=== PATIENT | female | born 1985 | race Caucasian/White ===

== ENCOUNTER 2018-04-07 21:52 | Inpatient (IN) | payer OTHER ==
[2018-04-07 22:20] VITALS: BMI 30.8
[2018-04-07] MEDS ORDERED: TERBUTALINE 1 MG/ML VIAL SQ PRN (22:25)
[2018-04-07] MEDS ORDERED: CARBOPROST TROMETHAMINE 250 MCG/ML 1 ML AMP IM PRN (22:25)
[2018-04-07] MEDS ORDERED: METHYLERGONOVINE 0.2 MG/ML 1 ML AMP IM PRN (22:25)
[2018-04-07] MEDS ORDERED: OXYTOCIN 10 UNIT/ML 1 ML VIAL IM PRN (22:25)
[2018-04-07] MEDS ORDERED: LIDOCAINE 0.5% (PF) 5 MG/ML (50 ML SDV) SQ PRN (22:25)
[2018-04-07] MEDS ORDERED: AMPICILLIN 2,000 MG in SODIUM CHLORIDE 0.9% 100 ML IVPB STA (22:25)
[2018-04-07] MEDS ORDERED: BUTORPHANOL 1 MG/ML 1 ML VIAL IV PRN (22:27)
[2018-04-07] MEDS ORDERED: OXYTOCIN 20 UNITS/1000 ML NS 1,000 ML IV SCH (22:30)
[2018-04-07] MEDS ORDERED: LACTATED RINGERS 1,000 ML IV SCH (22:30)
[2018-04-07] MEDS: LACTATED RINGERS 1,000 ML IV SCH (22:47)
[2018-04-07 23:39] LABS: Basophils % (A) 0 %; Eosinophils # (A) 0.3 k/uL (0-0.7); Eosinophils % (A) 1 %; HCT 36.5 % (34.0-46.0); HGB 11.6 gm/dL (11.4-16.0); Hypochromasia Slight; Lymphocytes # (A) 1.6 k/uL (1.0-4.8); Lymphocytes % (A) 9 %; MCH 30.4 pg (25.0-35.0); MCHC 31.6 g/dL (31.0-37.0); MCV 96.3 fL (80.0-100.0); Mean Platelet Volume 7.1; Monocytes # (A) 0.9 k/uL (0-1.0); Monocytes % (A) 5 %; Neutrophils # (A) 15.3 k/uL (1.3-7.7); Neutrophils % (A) 83 %; Platelet Count 349 k/uL (150-450); RBC 3.79 m/uL (3.80-5.40); RDW 14.3 % (11.5-15.5); WBC 18.3 k/uL (3.8-10.6)
--- NOTE | 2018-04-08 00:13 | P.HPOB ---
History of Present Illness H&P Date: 04/07/18 Chief Complaint: IUP at 39-6/7 weeks, active labor This is a pleasant 32-year-old 4 para 10-1 at 39-6/7 weeks that presents to labor and delivery with complaints of regular painful contractions. She denies loss of fluid or vaginal bleeding at this time. Patient notes good movement. Patient has known history of a 10 pound baby delivered in 2006 vaginally patient denies delivery complications. Patient has been receiving routine care with Dr. Pak On blood work a blood type of O+, rubella nonimmune, hepatitis B surface antigen negative, HIV negative, RPR nonreactive, GBS pos. Review of Systems Constitutional: Denies chills, Denies fatigue, Denies fever Ears, nose, mouth and throat: Denies headache Cardiovascular: Reports leg edema Respiratory: Denies cough, Denies dyspnea Gastrointestinal: Denies constipation, Denies diarrhea Genitourinary: Reports Past Medical History Past Medical History: No Reported History History of Any Multi-Drug Resistant Organisms: None Reported Past Surgical History: No Surgical Hx Reported Past Anesthesia/Blood Transfusion Reactions: No Reported Reaction Past Psychological History: Anxiety Smoking Status: Current every day smoker Past Alcohol Use History: Rare Past Drug Use History: Marijuana - Past Family History Mother Family Medical History: No Reported History Medications and Allergies Home Medications Medication Instructions Recorded Confirmed Type Pnv,Calcium 72/Iron/Folic Acid 1 tab PO ONCE 04/07/18 04/07/18 History [ Plus Tablet] Allergies Allergy/AdvReac Type Severity Reaction Status Date / Time No Known Allergies Allergy Verified 03/17/18 12:58 Exam Osteopathic Statement: *. No significant issues noted on an osteopathic structural exam other than those noted in the History and Physical/Consult. Vital Signs Temp Pulse Resp BP 04/07/18 22:15 98 F 86 16 125/61 Intake and Output 04/07/18 04/07/18 04/08/18 14:59 22:59 06:59 Other: Weight 78.925 kg On targeted physical exam in general patient was noted to be a well-nourished well-developed female, in no acute distress. Heart was noted to have regular rate and rhythm, lungs are clear to auscultation bilaterally, abdomen was noted to be Creve and appropriate for gestational age, on vaginal exam cervix to be 6, 90, -1 amniotomy was performed and clear fluid was obtained. heart tones were assessed and reassuring with moderate variability, patient was noted to be shyla every 2 minutes. Results Result Diagrams: 04/07/18 23:30 Abnormal Lab Results - Last 24 Hours (Table) 04/07/18 Range/Units 23:30 WBC 18.3 H (3.8-10.6) k/uL RBC 3.79 L (3.80-5.40) m/uL Neutrophils # 15.3 H (1.3-7.7) k/uL Assessment and Plan (1) Term Current Visit: Yes Status: Acute Code(s): Z34.80 - ENCOUNTER FOR SUPRVSN OF NORMAL , UNSP TRIMESTER SNOMED Code(s): 98157057 (2) Positive GBS test Current Visit: Yes Status: Acute Code(s): B95.1 - STREPTOCOCCUS, GROUP B, CAUSING DISEASES [facility] SNOMED Code(s): 1978543352759 (3) Tobacco abuse Current Visit: Yes Status: Acute Code(s): Z72.0 - TOBACCO USE SNOMED Code( s): 138093477 Plan: We'll admit to labor and delivery for expectant management, anticipate spontaneous vaginal delivery this evening. Patient is given IV ampicillin given her group beta strep positive culture.
[2018-04-08] MEDS ORDERED: LANOLIN CREAM 5 GM TUBE TOPICAL PRN (01:32)
[2018-04-08] MEDS ORDERED: ZOLPIDEM 5 MG TAB PO PRN (01:32)
[2018-04-08] MEDS ORDERED: BENZOCAINE/MENTHOL SPRAY 1 GM/SPRAY AEROSOL TOPICAL PRN (01:32)
[2018-04-08] MEDS ORDERED: ACETAMINOPHEN TAB 325 MG TAB PO PRN (01:32)
[2018-04-08] MEDS ORDERED: WITCH HAZEL 1 EACH MED..PAD TOPICAL PRN (01:32)
[2018-04-08] MEDS ORDERED: diphenhydrAMINE 50 MG CAP PO PRN (01:32)
[2018-04-08] MEDS ORDERED: diphenhydrAMINE 50 MG/ML 1 ML VIAL IVP PRN ×2 (01:32)
[2018-04-08] MEDS ORDERED: HYDROCORTISONE 2.5% RECTAL CREAM 30 GM TUBE RECTAL PRN (01:32)
[2018-04-08] MEDS ORDERED: SIMETHICONE 80 MG CHEWABLE PO PRN (01:32)
[2018-04-08] MEDS ORDERED: diphenhydrAMINE 25 MG CAP PO PRN (01:32)
--- NOTE | 2018-04-08 01:36 | P.PROBDLV ---
Vaginal Delivery Note - . Vaginal Delivery Note: This is a 32-year-old 4 para 10-1 at 39-6/7 weeks with an estimated due date of 04 08. Patient presents to labor and delivery with regular strong contractions. She denies loss of fluid at the time of admission. Patient was admitted to labor and delivery. She did request epidural for pain management and anesthesia placed without difficulty. Patient progressed to complete and had a normal spontaneous vaginal delivery of a viable female at 117 weight of 8 lbs. 10 oz. with Apgars of 8 and 9 at one and 5 minutes respectively. The placenta was then delivered spontaneously intact with a three -vessel cord. Inspection the patient's vaginal vault a second-degree midline laceration was noted which was repaired in the usual fashion with 3-0 Rapide. Estimated blood loss 300 mL Patient and infant tolerated delivery well and are resting comfortably
[2018-04-08] MEDS ORDERED: MEASLES-MUMPS-RUBELLA VACC/PF 12,500 UNIT/0.5 ML VIAL SQ ONE (01:44)
[2018-04-08] MEDS ORDERED: OXYTOCIN 20 UNITS/1000 ML NS 1,000 ML IV SCH (01:45)
[2018-04-08] MEDS ORDERED: PRENATAL VIT-IRON-FOLIC ACID 1 EACH CAP PO ONE (01:45)
[2018-04-08] MEDS: IBUPROFEN 600 MG TAB PO PRN ×3 (02:21→19:42)
[2018-04-08] MEDS ORDERED: AMPICILLIN 1,000 MG in SODIUM CHLORIDE 0.9% 50 ML IVPB SCH (02:27)
[2018-04-08] MEDS: SENNOSIDES-DOCUSATE SODIUM 1 EACH TAB PO SCH ×2 (09:18→21:39)
[2018-04-08] MEDS ORDERED: ROPIVACAINE 100 MG, fentaNYL (PF) 200 MCG in SODIUM CHLORIDE 0.9% 76 ML EPIDURAL ONE (10:31)
[2018-04-08 21:34] VITALS: RESP 16
[2018-04-08] MEDS: LACTATED RINGERS 1,000 ML IV SCH (21:36)
[2018-04-09 06:01] LABS: Basophils # (A) 0.1 k/uL (0-0.2); Basophils % (A) 0 %; Eosinophils # (A) 0.1 k/uL (0-0.7); Eosinophils % (A) 1 %; HCT 32.6 % (34.0-46.0); HGB 10.1 gm/dL (11.4-16.0); Hypochromasia Slight; Lymphocytes # (A) 2.8 k/uL (1.0-4.8); Lymphocytes % (A) 23 %; MCHC 31.1 g/dL (31.0-37.0); MCV 96.4 fL (80.0-100.0); Mean Platelet Volume 7.3; Monocytes # (A) 0.7 k/uL (0-1.0); Monocytes % (A) 6 %; Neutrophils # (A) 8.2 k/uL (1.3-7.7); Neutrophils % (A) 67 %; Platelet Count 290 k/uL (150-450); RBC 3.38 m/uL (3.80-5.40); RDW 14.3 % (11.5-15.5); WBC 12.2 k/uL (3.8-10.6)
[2018-04-09] MEDS: IBUPROFEN 600 MG TAB PO PRN ×3 (06:29→18:51)
[2018-04-09] MEDS: SENNOSIDES-DOCUSATE SODIUM 1 EACH TAB PO SCH ×2 (08:21→20:51)
--- NOTE | 2018-04-09 09:55 | P.PNOBGVD ---
Subjective - Subjective Patient reports: Reports appetite normal, Reports voiding normally, Reports pain well controlled, Reports ambulating normally : doing well, other (Infant is required to stay for 48 hours secondary to group B strep concerns.) Objective - Latest Vital Signs Latest vital signs: Vital Signs Temp Pulse Pulse Resp BP Pulse Ox 04/09/18 08:00 98.0 F 70 16 101/67 04/09/18 00:00 98.4 F 68 16 109/59 04/08/18 20:00 98.1 F 69 16 95/68 04/08/18 12:29 98.7 F 76 15 103/58 98 Intake and Output 04/08/18 04/09/18 04/09/18 22:59 06:59 14:59 Other: # Voids 1 1 - Exam Extremities: Present: normal Abdomen: Present: normal appearance, soft Uterus: Present: normal, firm (The uterine fundus as tonic and nontender around the umbilicus.) - Labs Labs: Abnormal Lab Results - Last 24 Hours (Table) 04/09/18 Range/Units 05:54 WBC 12.2 H (3.8-10.6) k/uL RBC 3.38 L (3.80-5.40) m/uL Hgb 10.1 L (11.4-16.0) gm/dL Hct 32.6 L (34.0-46.0) % Neutrophils # 8.2 H (1.3-7.7) k/uL Assessment and Plan (1) Normal spontaneous vaginal delivery Current Visit: Yes Status: Acute Code(s): O80 - ENCOUNTER FOR FULL-TERM UNCOMPLICATED DELIVERY SNOMED Code(s): 95737333 (2) Perineal laceration during delivery Current Visit: Yes Status: Acute Code(s): O70.9 - PERINEAL LACERATION DURING DELIVERY, UNSPECIFIED SNOMED Code(s): 318374729 Plan: Continue routine care as the is to remain for observation for 48 hours secondary to maternal group B strep status and inadequate antibiotic prophylaxis. Probable discharge home tomorrow.
[2018-04-10] MEDS: IBUPROFEN 600 MG TAB PO PRN ×2 (04:47→10:40)
[2018-04-10 08:37] VITALS: BP 103/64; PULSE 66; TEMP 97.6
[2018-04-10] MEDS: SENNOSIDES-DOCUSATE SODIUM 1 EACH TAB PO SCH (08:38)
--- NOTE | 2018-04-10 10:22 | P.DS ---
Providers Date of admission: 04/07/18 21:52 Expected date of discharge: 04/10/18 Attending physician: Krystina Pak Primary care physician: Stated None - Discharge Diagnosis(es) (1) Normal spontaneous vaginal delivery Current Visit: Yes Status: Acute (2) Perineal laceration during delivery Current Visit: Yes Status: Acute Hospital Course: The patient is a 32-year-old 4 para 1021 admitted at 39 and 6 ounce weeks by good dating parameters. She is admitted in active labor with all signs reassuring. Her has been essentially uncomplicated and group E strep status is positive. As result, she had antibody prophylaxis started and an epidural catheter placed for analgesia. She progressed quickly to complete however, and pushed to a normal spontaneous vaginal delivery of a viable 8 lbs. 10 oz. baby girl with Apgars of 8 at 1 minute and 9 at 5 minutes. She did not receive adequate antibiotic prophylaxis leading to the need for the infant to remain for observation for 48 hours. The patient's course was entirely unremarkable vital signs remaining stable and her temperature was afebrile throughout. She was discharged home on day #2 was discharged to follow-up in the office in 6 weeks' time routinely. Discharge instructions included calling for any significantly increased bleeding or foul- smelling lochia, significantly increased fever abdominal pain, perineal complaints, breast complaints, or anything else that concerned her. She was additionally instructed to have nothing in the vagina for at least 6 weeks time to include intercourse. She understood her instructions and agrees to follow up as noted above. Discharge medications included only [id number] analgesic pain medications. Maternal blood type is O+ and rubella status is nonimmune and she therefore was to receive the MMR vaccination prior to discharge. Procedures: #1. Antibody prophylaxis #2. Epidural analgesia #3. Normal spontaneous vaginal delivery #4. Repair of perineal laceration Patient Condition at Discharge: Good Plan - Discharge Summary New Discharge Prescriptions: No Action Pnv,Calcium 72/Iron/Folic Acid [ Plus Tablet] 1 tab PO ONCE Discharge Medication List Pnv,Calcium 72/Iron/Folic Acid [ Plus Tablet] 1 tab PO ONCE 04/07/18 [ History] Follow up Appointment(s)/Referral(s): Krystina Pak MD [STAFF PHYSICIAN] - 6 Weeks Discharge Disposition: HOME SELF-CARE
== END 2018-04-10 11:35 | disposition home or self-care (01) | DRG 807 ==
LOC: 4FBP 21:52 → UNDOADMIN 22:05 → 4FBP 22:05
PROVIDERS: ADMIT Obstetrics & Gynecology; ATTEND Obstetrics & Gynecology
PROC: 0UQGXZZ Repair Vagina, External Approach (ICD-10-PCS; principal; 2018-04-08)
PROC: 00HU33Z Insertion of Infusion Device into Spinal Canal, Percutaneous Approach (ICD-10-PCS; principal; 2018-04-08)
PROC: 3E0R3NZ Introduction of Analgesics, Hypnotics, Sedatives into Spinal Canal, Percutaneous Approach (ICD-10-PCS; principal; 2018-04-08)
PROC: 10E0XZZ Delivery of Products of Conception, External Approach (ICD-10-PCS; principal; 2018-04-08)
DX: O99.824 Streptococcus B carrier state complicating childbirth (principal); Z37.0 Single live birth; O99.334 Smoking (tobacco) complicating childbirth; F17.200 Nicotine dependence, unspecified, uncomplicated; Z3A.39 39 weeks gestation of pregnancy; O71.4 Obstetric high vaginal laceration alone
CPT/HCPCS: 85025; 86850; 86900; 86901